=== PATIENT | male | born 1935 | race Caucasian/White ===

== ENCOUNTER 2016-09-25 09:32 | Inpatient (IN) | payer MEDICARE, OTHER ==
[~2016-09-25] VITALS: Ht 165.1 cm; Wt 57.8 kg
[2016-09-25] VITALS (9 sets, daily range): BP systolic 147–183; BP diastolic 75–104; PULSE 74–95; RESP 20–28; O2SAT 94–98
[2016-09-25 10:30] LABS: BASOPHILS % (AUTO) 0.1 % (0-3); EOSINOPHILS % (AUTO) 0 % (0-5); MONOCYTES % (AUTO) 11.1 % (4-12); Mean Corpuscular Hemoglobin 30.7 pg (27.0-35.0); Mean Corpuscular Volume 95.2 fL (81-100); NEUTROPHILS % (AUTO) 81.3 % (40-74); Platelet Count 96 bil/L (150-400)
--- NOTE | 2016-09-25 11:14 | DRSVH ---
PROCEDURE: CT BRAIN WITHOUT CONTRAST ([id number]) INDICATIONS: possible stroke TECHNIQUE: Noncontrast 4.5 mm thick angled axial sections acquired from the foramen magnum to the vertex, with c oronal reformats. COMPARISON: None. FINDINGS: Image quality: Excellent. CSF spaces: Basal cisterns are patent. No extra-axial fluid collections. The ventricles are symmet octaviano in size and shape. Brain: No intracranial bleeds or masses. There is cerebral volume loss for age, with resultant vent ricular and sulcal prominence. There are periventricular and deep white matter chronic small vessel ischemic changes. 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 There is intracranial internal caroti d artery atherosclerosis. Skull and face: Calvarium and visualized facial bones appear intact, without suspicious lesions. Sinuses: Visualized sinuses and mastoids are clear except for very small bilateral maxillary sinus a ir-fluid levels and moderate opacification involving the ethmoid air cells bilaterally. 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 Sinusitis as discussed, likely a combination of both chronic and acute. Dictated by: Justo Thomas M.D. on 09/25/2016 at 11:08 Approved by: Justo Thomas M.D. on 09/25/2016 at 11:13
[2016-09-25 11:29] LABS: APPEARANCE,URINE HAZY (CLEAR,HAZY); COLOR,URINE STRAW (YELLOW); PH,URINE 5.5 (5.0-8.0)
[2016-09-25 11:30] LABS: OCCULT BLOOD,URINE MODERATE (NEGATIVE)
[2016-09-25 11:31] LABS: UROBILINOGEN,URINE NORMAL (NORMAL)
--- NOTE | 2016-09-25 13:04 | ED.REPORT ---
HPI-General Illness Date of Service Sep 25, 2016 ED Provider: Nabil Forman MD 81yoM with PMH remarkable for malignant neoplasm of the lung, parkinson's disease presents with a 1 day history of altered mental status from [facility]. Report from EMS is that the patient is typically verbal, fully oriented, cooperative and ambulatory however this morning [place] staff noted that the patient was non-verbal, uncooperative and combative with staff. Patient remains nonverbal and was unable to provide any background information. The DPOA/son Jr Jones Jr. was contacted and stated that the patient had a diagnosis of lung cancer in 1995 with a pneumonectomy but has not had a recurrence of the cancer since. The patient is DNR/DNI, limited interventions, ok antibiotics and no tube feeds on POLST. The PCP Natacha CUENCA was contacted and her partner was able to provide limited information noted above. On speaking with [facility] living the patient did not receive any of his antibiotics, and has not taken his regular medication since yesterday morning. The patient appears to have been declining since 09/23/2016, was likely confused last night 09/24, and completely altered from his normal this morning 05/2017. Nursing Notes Stated Complaint: WEAKNESS Chief Complaint: General Complaint Nursing Notes Reviewed: Yes Allergies: Coded Allergies: amantadine (Verified Allergy, Unknown, 09/25/16) cephalexin (Verified Allergy, Unknown, 09/25/16) codeine (Verified Allergy, Unknown, 09/25/16) guaifenesin (Verified Allergy, Unknown, 09/25/16) pneumococcal vaccine (Verified Allergy, Unknown, 09/25/16) pregabalin (Verified Allergy, Unknown, 09/25/16) Scheduled Albuterol/Ipratropium (Combivent Respimat Inhal Winters) 120 Spr/4 Gm Inhaler 1 PUFF IH QID Carbidopa/Levodopa ER 50-200 mg (Carbidopa/Levodopa ER 50-200 mg) 1 Each Tablet 1 TABLET PO BID Cholecalciferol (Vitamin D3) (Vitamin D3) 2,000 Unit Tablet 2,000 UNIT PO QAM Citalopram (Citalopram) 10 Mg Tablet 10 MG PO QAM Fluticasone Propionate (Fluticasone Propionate Nasal) 16 Gm Winters.susp 1 SPRAY NS DAILY Fluticasone/Salmeterol (Advair 100-50 Diskus) 60 Puffs/Inh Disk 1 PUFFS IH BID Lactobacillus Acidophilus (Florajen) 460 Mg Capsule 460 MG PO QPM Levothyroxine (Levothyroxine) 25 Mcg Tablet 25 MCG PO QAM Lisinopril (Lisinopril) 20 Mg Tablet 20 MG PO QAM Memantine (Namenda) 10 Mg Tablet 10 MG PO BID Sennosides (Senna) 8.6 Mg Tablet 8.6 MG PO MON,WED, FRI Simvastatin (Simvastatin) 20 Mg Tablet 20 MG PO QPM Scheduled PRN Acetaminophen (Acetaminophen) 325 Mg Capsule 650 MG PO Q4H PRN PRN For Pain Docusate Sodium (Docusate Sodium) 250 Mg Capsule 250 MG PO DAILY PRN PRN For Constipation Guaifenesin (Mucinex) 600 Mg Tablet.er 600 MG PO BID PRN PRN For Cough Mag Hydrox/Al Hydrox/Simeth (Antacid Suspension) 400 Mg-400 Mg-40 Mg/5 Ml Oral.susp 30 ML PO Q4H PRN PRN For Indigestion Magnesium Hydroxide (Milk of Magnesia) 400 Mg/5 Ml Oral.susp 30 ML PO DAILY PRN PRN For Constipation General Time Seen by MD: 10:00 Transferred From: long-term Chief Complaint Altered mental status Hx Obtained From: Son, EMS, Primary care provider Arrived By: Ambulance Sudden in Onset?: Yes Onset Occurred: 1 - 4 hours ago Context of Onset: Medication reaction Symptom Duration: Since onset Recent Healthcare: Recent doctor visit (diagnosed with PNA and started on Levequin) Past Medical History current medication list includes: Citalopram 10mg Fluticasone 50mcg nspry Levothyroxine 25mcg daily Lisinopril 20mg senna Simvastatin 20mg aden Advair 100-50mcg 1 puff BID Carbidopa/LevoCr 50-200mg tab Memantine 10mg Combivent 1 puff QID Levofloxacin 750mg daily for pneumonia started 09/24 or 09/25 Past Medical History Hypothyroidism hyperlipidemia HTN Anxiety Parkinson's CKD Asthma COPD non-small cell lung cancer 1995 Past Surgical History pneumonectomy Smoking History Unknown if Ever Smoker Social History lives at [facility]/Assisted living Ambulatory Status Independent Unable to Obtain History Past medical history, Past surgical history, Family history, Smoking history, Social history, Occupation, Ambulatory status Unable to Obtain Due to: AMS Review of Systems Unable to Obtain ROS Mental status Physical Exam Vital Signs Vital Signs Date Time Temp Pulse Resp B/P Pulse Ox O2 Delivery O2 Flow Rate FiO2 09/25/16 12:21 36.6 81 22 159/85 95 Nasal Cannula 4 09/25/16 10:45 74 150/78 95 Nasal Cannula 4 09/25/16 09:56 36.6 83 21 183/104 94 Nasal Cannula 4 Initial VS: Reviewed Head / Eyes: Atraumatic, Normocephalic, PERRL Neck: Supple, Non-tender, Full range of motion Respiratory: No respiratory distress General/Constitutional: Awake, No acute distress Appearance / Presentation: Positive: Cachectic, Frail, Ill appearing/not toxic , Underweight nonverbal Head / Eyes: Atraumatic, Normocephalic, PERRL Respiratory / Chest: No respiratory distress, No wheezing, No stridor Diminished Breath Sounds: Positive: Absent R Rales / Rhonchi: Positive: Rales L up to 1/3 right rib deformity consistent with pneumonectomy Cardiovascular: Heart rate NL, Peripheral circulation NL, Pulses = bilaterally Heart Rate / Rhythm: Positive: Irreg irregular rhythm no pretibial edema Abdomen: Atraumatic, No guarding, No rebound, BS normoactive, No distention, No palpable mass, No pulsatile mass unable to assess as patient does not follow commands Unable to Evaluate: Positive: Unresponsive Interpretation & Diagnostics Lab Results Interpretation Result Diagram: 09/27/16 0557 09/27/16 0557 Test 09/25/16 10:35 09/25/16 11:17 09/25/16 11:24 Lactic Acid Level 1.0mmol/L (0.4-2.0) Urine Legionella pneumophilia Ag Negative (Negative) Urine Color Straw (YELLOW) Urine Appearance Hazy (CLEAR,HAZY) Urine pH 5.5 (5.0-8.0) Urine Specific [place] 1.030 (1.003-1.035) Urine Protein 300mg/dL (NEG,TRACE) Urine Glucose (UA) Negativemg/dL (NEGATIVE) Urine Ketones 15mg/dL (NEGATIVE) Urine Occult Blood Moderate (NEGATIVE) Urine Nitrite Negative (NEGATIVE) Urine Bilirubin Negative (NEGATIVE) Urine Urobilinogen Normalmg/dL (NORMAL) Urine Leukocyte Esterase Negative (NEGATIVE) Urine RBC 0-2/hpf (0-2) Urine WBC 0-5/hpf (0-5) Urine Epithelial Cells Occasional/hpf (NONE-MOD) Urine Crystals Amorphous urates (NONE Urine Bacteria Moderate/hpf (NONE-FEW) Urine Hyaline Casts Occasional/lpf (NONE) Urine Granular Casts Occasional (NONE SEEN) Urine Waxy Casts None seen (NONE SEEN) Urine Red Blood Cell Casts None seen (NONE SEEN) Urine White Blood Cell Casts None seen (NONE SEEN) Urine Mucus None seen (None Seen) Urine Trichomonas None seen (NONE SEEN) Urine Yeast None (NONE SEEN) Urinalysis Comment None Urine Culture Reflexed Indicated Re-Eval/Medical Decision Med Decision/Clinical Course CBC procal and CXR appear positive for PNA SIRS positive with tachypnea and 13K WBC Patient started on IV ampicillin for typical PNA (allergy to Cephalexin with reaction not able to be verified) and azithromycin IV for atypical infections Source of Hx: Old records, EMS, Family, Private physician Consultation : Referral / Consult Name: Des Rosen MD Consulted With: Hospitalist Requested Call at: 12:30 [employer] Tr[employer] Contractor: Accepts admit Discharge & Departure Primary Impression: Pneumonia Disposition: ADMITTED TO HOSPITAL Discharge Condition All VS Reviewed: Yes Condition: Stable Referrals: Natacha Patel (PCP) Attending Statement I saw and evaluated the patient with the resident as above. I independently evaluated the patient and agree with plan as above. 81-year-old male history of dementia living in assisted living facility presenting for possible pneumonia. Patient with left lower lobe pneumonia. His oxygen requiring 4L. Sirs physiology. Patient will be admitted for pneumonia. He is given Rocephin and azithromycin. In addition patient is not answering any of our questions. Per discussion with his daughter Jamila, patient normally is verbal. Last normal last night. CT head normal. Will defer further workup possible MRI to hospitalist service. copies to: Natacha Patel NICHOLAS K DO Sep 25, 2016 11:30 Nabil Forman MD Sep 25, 2016 15:07 Urine Appearance Hazy (CLEAR,HAZY) Urine pH 5.5 (5.0-8.0) Urine Specific [place] 1.030 (1.003-1.035) Urine Protein 300mg/dL (NEG,TRACE) Urine Glucose (UA) Negativemg/dL (NEGATIVE) Urine Ketones 15mg/dL (NEGATIVE) Urine Occult Blood Moderate (NEGATIVE) Urine Nitrite Negative (NEGATIVE) Urine Bilirubin Negative (NEGATIVE) Urine Urobilinogen Normalmg/dL (NORMAL) Urine Leukocyte Esterase Negative (NEGATIVE) Urine RBC 0-2/hpf (0-2) Urine WBC 0-5/hpf (0-5) Urine Epithelial Cells Occasional/hpf (NONE-MOD) Urine Crystals Amorphous urates (NONE Urine Bacteria Moderate/hpf (NONE-FEW) Urine Hyaline Casts Occasional/lpf (NONE) Urine Granular Casts Occasional (NONE SEEN) Urine Waxy Casts None seen (NONE SEEN) Urine Red Blood Cell Casts None seen (NONE SEEN) Urine White Blood Cell Casts None seen (NONE SEEN) Urine Mucus None seen (None Seen) Urine Trichomonas None seen (NONE SEEN) Urine Yeast None (NONE SEEN) Urinalysis Comment None Urine Culture Reflexed Indicated Re-Eval/Medical Decision Med Decision/Clinical Course CBC procal and CXR appear positive for PNA SIRS positive with tachypnea and 13K WBC Patient started on IV ampicillin for typical PNA (allergy to Cephalexin with reaction not able to be verified) and azithromycin IV for atypical infections Source of Hx: Old records, EMS, Family, Private physician Consultation : Referral / Consult Name: Des Rosen MD Consulted With: Hospitalist Requested Call at: 12:30 [employer] Tr[employer] Contractor: Accepts admit Discharge & Departure Primary Impression: Pneumonia Disposition: ADMITTED TO HOSPITAL Discharge Condition All VS Reviewed: Yes Condition: Stable Referrals: Natacha Patel (PCP) Attending Statement I saw and evaluated the patient with the resident as above. I independently evaluated the patient and agree with plan as above. 81-year-old male history of dementia living in assisted living facility presenting for possible pneumonia. Patient with left lower lobe pneumonia. His oxygen requiring 4L. Sirs physiology. Patient will be admitted for pneumonia. He is given Rocephin and azithromycin. In addition patient is not answering any of our questions. Per discussion with his daughter Jamila, patient normally is verbal. Last normal last night. CT head normal. Will defer further workup possible MRI to hospitalist service. copies to: Natacha Patel NICHOLAS K DO Sep 25, 2016 11:30 Nabil Forman MD Sep 25, 2016 15:07
[2016-09-25] MEDS: 0.9% Sodium Chloride 1,000 ML IV SCH ×2 (13:16→22:05)
[2016-09-25] MEDS: Azithromycin Inj 500 MG in Dextrose 5% w/Vial Mate 250 ML IV SCH (13:21)
[2016-09-25] MEDS ORDERED: CITA10TA9 PO (13:42)
[2016-09-25] MEDS ORDERED: GUAI600T2 PO (13:42)
[2016-09-25] MEDS ORDERED: MAG-95 PO (13:42)
[2016-09-25] MEDS ORDERED: ACET325C PO (13:42)
[2016-09-25] MEDS ORDERED: MAGN400O4 PO (13:42)
[2016-09-25] MEDS ORDERED: LISI-567 PO (13:42)
[2016-09-25] MEDS ORDERED: DOCU250C2 PO (13:42)
[2016-09-25] MEDS ORDERED: SENN-133 PO (13:42)
[2016-09-25] MEDS ORDERED: IPRA4AER IH (13:42)
[2016-09-25] MEDS ORDERED: ADV100INH IH (13:42)
[2016-09-25] MEDS ORDERED: NAM10 PO (13:42)
[2016-09-25] MEDS ORDERED: CHOL200025 PO (13:42)
[2016-09-25] MEDS ORDERED: SIMV20TA4 PO (13:42)
[2016-09-25] MEDS ORDERED: LEVO25TA5 PO (13:42)
[2016-09-25] MEDS ORDERED: LACT460C PO (13:42)
[2016-09-25] MEDS ORDERED: FLUT16SP NS (13:42)
[2016-09-25] MEDS ORDERED: CARB1TAB37 PO (13:42)
--- NOTE | 2016-09-25 14:22 | DRSVH ---
PROCEDURE: X-RAY CHEST ONE VIEW, PORTABLE ([id number]) INDICATIONS: pneumonia TECHNIQUE: One view of the chest was acquired. COMPARISON: [facility], , CHEST 1 VIEW, 11/04/2014, 9:21. FINDINGS: Surgical changes and devices: Right hilar surgical clips redemonstrated. Lungs and pleura: Opacification of the right hemithorax related to prior pneumonectomy. Airspace opa city mildly medial left lung base otherwise left lung is clear. Mediastinum: Mediastinal contours appear normal. Heart size is normal. Bones and chest wall: No suspicious bony lesions. Overlying soft tissues appear unremarkable. IMPRESSION: Left basilar atelectasis versus aspiration or pneumonia. Correlate clinically. Dictated by: Dev Burk RR Interpreted: Justo Thomas MD on 09/25/2016 at 14:21 Transcribed by: JO ANN on 09/25/2016 at 14:22 Approved by: Justo Thomas M.D. on 09/27/2016 at 16:00
[2016-09-25] MEDS ORDERED: Ampicillin Inj 2,000 MG in 0.9% Sodium Chloride 100 ML IV SCH (14:30)
[2016-09-25] MEDS: Albuterol-Ipratropium 3 mL Inhalation Solution NEB SCH ×3 (14:35→19:39)
--- NOTE | 2016-09-25 15:11 | PCM.HPMED ---
Subjective Date of Service Sep 25, 2016 Primary Provider: Admitting Physician: Kaycee Robison MD Primary Care Physician: Natacha Patel Attending Physician: Kaycee Robison MD Chief Complaint: AMS, weakness, decreased po intake, History of Present Illness: Patient is not in condtion to give hx, hx obtained from charts, 81yoM with remote NSCLC s/p Rt pneumonectomy, [facility] [place] [facility], pt started to deteriorate since 09/23, confused last night, got worse this morning, it was reported that yesterday, pt was diagnosed with PNA, reported poor eating, patient complained of not feeling well, received one dose of Levaquin(which denied per ED note), noted v/s 176/97, 85, 86% on RA to 98% on 4liters at the facility. At baseline, pt is function, oriented. This morning pt was found to be combative, non-verbal, brought to ED. In ED VS BP stable 180/104-147/86, 83 to 99, tachypneic to 22, afebrile, 94% 4liter NC,labs showed wbc13, procalcitonin 0.47, lactate1.0, CXR showed complete rt lung opacification likely represent prior pneumonectomy(unchanged from prior), Lt basilar opacities suggestive of PNA. Review of Systems: Pertinent positives as noted in history of present illness. All other systems were reviewed and are negative Allergies Coded Allergies: amantadine (Verified Allergy, Unknown, 09/25/16) cephalexin (Verified Allergy, Unknown, 09/25/16) codeine (Verified Allergy, Unknown, 09/25/16) guaifenesin (Verified Allergy, Unknown, 09/25/16) pneumococcal vaccine (Verified Allergy, Unknown, 09/25/16) pregabalin (Verified Allergy, Unknown, 09/25/16) Home Medications current medication list includes: Citalopram 10mg Fluticasone 50mcg nspry Levothyroxine 25mcg daily Lisinopril 20mg senna Simvastatin 20mg aden Advair 100-50mcg 1 puff BID Carbidopa/LevoCr 50-200mg tab Memantine 10mg Combivent 1 puff QID Levofloxacin 750mg daily for pneumonia started 09/24 or 09/25 PMH Hypothyroidism hyperlipidemia HTN Anxiety Parkinson's CKD Asthma COPD non-small cell lung cancer 1995 Past Surgical History pneumonectomy Social History unable to verify toxic habits due to patient's condition lives at [facility]/Assisted living Ambulatory Status Independent FHx unable to verify due to patient's condition Social History Hx Alcohol Use: Yes Alcoholic Drinks Per Day: unable to verify Smoking Status: Unknown if Ever Smoker Exam Vital Signs Vital Sign - Last Date Time Temp Pulse Resp B/P Pulse Ox O2 Delivery O2 Flow Rate FiO2 09/25/16 14:25 36.6 85 23 147/86 98 Nasal Cannula 4 Exam Patient looked ill, tychpneic, diaphoretic, mumbling, not following commands no JVD, MMM, no LAD regular tachy, nl s1, s2 no mrg coarse BS anteriorly S,ND,NT,normoactive BS+ very warm, vasodilated, no edema, pulses 2/2 Lab and Diagnostics Result Diagram: 09/25/16 0949 09/25/16 0949 X-Rays, CTs and MRIs CTH no acute findings PROCEDURE: X-RAY CHEST ONE VIEW, PORTABLE ([id number]) INDICATIONS: pneumonia TECHNIQUE: One view of the chest was acquired. COMPARISON: [facility], , CHEST 1 VIEW, 11/04/2014, 9:21. FINDINGS: Surgical changes and devices: Right hilar surgical clips redemonstrated. Lungs and pleura: Opacification of the right hemithorax related to prior pneumonectomy. Airspace opacity mildly medial left lung base otherwise left lung is clear. Mediastinum: Mediastinal contours appear normal. Heart size is normal. Bones and chest wall: No suspicious bony lesions. Overlying soft tissues appear unremarkable. IMPRESSION: Left basilar atelectasis versus aspiration or pneumonia. Correlate clinically. Dictated by: Dev EM Interpreted: Justo Thomas MD on 09/25/2016 at 14: 21 Transcribed by: JO ANN on 09/25/2016 at 14:22 Assessment & Plan 81yoM with remote NSCLC s/p Rt pneumonectomy, [facility], decreased po, weakness, not feeling well. acute, active #sepsis, SIRS+ 3/4HR/RR/wbc, possible source: pnuemonia, likely HCAP given living [facility], HD stable, afebrile, likely early sepsis based on exam, potential to decompensate quickly., will treat as HCAP. UA clean -will broaden abx to zosyn, high risks of resistant strep, pseudmonas given structural lung dz, age -FU infectious w/u MRSA swab, sterp Ag, legionella, viral PCR, BCX, sputum cx -O2 supplement target>90% given one ventilating lung -MAP target>65, trends procalcitonin, fever, wbc #acute encephalopathy, POA, CTH neg, unlikely CVA, likely toxic metabolic due to sepsis, reassess MS daily, verify with caregiver. chronic, stable PD, will resume dopamine once clinically improves hx of lung CA s/p pneumonectomy, likely in remission per PCP dispo:Patient will be admitted with inpatient status with expectation of inpatient therapy for more than 2 midnights diet:NPO for now dvt ppx:LMWH DNR/DNI Time spent 65min Kaycee Robison MD Sep 25, 2016 14:35
[2016-09-25] MEDS ORDERED: Vancomycin Dose per Pharmacist XX SCH (15:15)
[2016-09-25] MEDS ORDERED: Piperacillin-Tazo 3.375 Gm Inj 3.375 GM in Dextrose 5% Minibag Plus 50 ML IV SCH (15:15)
[2016-09-25] MEDS ORDERED: 0.9% Sodium Chloride 1,000 ML IV SCH (15:15)
--- NOTE | 2016-09-25 16:12 | NUR ---
Admit Patient admitted to room 1015. Patient arrives via gurney transferred to bed by slider. Pt is very cachetic many bony prominences. Patient alert but declines to communicate much occasionally answers questions. Pt on 4-5 liters nasal canula , very coarse breath sounds and harsh course cough noted. Admission completed by admit nurse earlier. Resp therapy here to assess.
--- NOTE | 2016-09-25 16:12 | PCM.PHAPRO ---
Progress AMS, weakness, decreased po intake, Patient is an 81 y.o. male receiving vancomycin for PNEUMONIA. Concurrent abx include: ZOSYN. WBC count is 13 and the patient is afebrile. Patient is 56 kg, 65inches tall with a SCr of 1.0 mg/dL-- estimated CrCl of 45mL /min. Based on patient parameters vancomycin will be dosed at 1000mg q24h with a target trough of 15-20 /mL. Trough will be drawn prior to the 4th dose on 09/28 @ 1700. Pharmacy will follow daily and adjust as appropriate. Thank you for the consult in the care of this patient. RTM PharmD Bogdan Patten Sep 25, 2016 16:12
[2016-09-25] MEDS ORDERED: Vancomycin Inj 1,000 MG in IV Premix 1 EACH IV SCH (18:00)
[2016-09-25] MEDS: Piperacillin-Tazo 3.375 Gm Inj 3.375 GM in Dextrose 5% Minibag Plus 50 ML IV SCH (21:57)
[2016-09-26] VITALS (14 sets, daily range): BP systolic 112–149; BP diastolic 55–73; PULSE 77–113; RESP 19–24; O2SAT 92–99
[2016-09-26] MEDS: Albuterol-Ipratropium 3 mL Inhalation Solution NEB SCH ×6 (00:17→19:56)
--- NOTE | 2016-09-26 04:08 | NUR ---
Activity Noted cough during sleep, RT administrated NEB tx, VSS at this time. Level of confusion is difficult to determine as the patient is hard of hearing, and does not answer questions appropriately. Bed in low position, call light within reach, [place] alarm on, and intentional rounding. Not exhibiting s/s of CP,nor Abdominal discomfort. Will continue plan of care.
[2016-09-26] MEDS: Piperacillin-Tazo 3.375 Gm Inj 3.375 GM in Dextrose 5% Minibag Plus 50 ML IV SCH ×2 (04:23→11:58)
[2016-09-26 07:00] LABS: BASOPHILS % (AUTO) 0.1 % (0-3); EOSINOPHILS % (AUTO) 0 % (0-5); MONOCYTES % (AUTO) 9.1 % (4-12); Mean Corpuscular Hemoglobin 30.3 pg (27.0-35.0); Mean Corpuscular Volume 96.3 fL (81-100); NEUTROPHILS % (AUTO) 87.1 % (40-74); Platelet Count 96 bil/L (150-400)
[2016-09-26 07:25] LABS: Magnesium 1.9 mg/dL (1.6-2.6); Phosphorus 3.1 mg/dL (2.5-4.9)
[2016-09-26] MEDS: Lactated Ringer's 1,000 ML IV SCH ×2 (11:53→22:33)
--- NOTE | 2016-09-26 12:00 | PCM.PNMED ---
Subjective Date of Service Sep 26, 2016 Subjective Patient looks more alert than yesterday, oriented to himself Still looked ill, labored breathing, tachypnea passed swallow test, Tamiflu started for influenza A Recurrent fever multiple times, HD stable, pt asked for water for thirsty Exam Vital Signs Vital Sign - Last Date Time Temp Pulse Resp B/P Pulse Ox O2 Delivery O2 Flow Rate FiO2 09/26/16 11:00 36.7 89 21 113/64 92 Nasal Cannula 3.50 Intake and Output 09/25/16 09/25/16 09/26/16 Cumulative From/Thru 15:00 23:00 07:00 09/25/16 11:51 - 09/26/16 05:24 Intake Total 0 ml 645 ml 645 ml Output Total 538 ml 538 ml Balance -538 ml 645 ml 107 ml Intake Oral 0 ml 0 ml IV Total 645 ml 645 ml Output Urine Total 538 ml 538 ml # Voids 2 2 Exam cachectic elderly, looked ill, tachypneic. using accessory muscle no JVD, MMM, no LAD regular tachy, nl s1, s2 no mrg coarse BS anteriorly S,ND,NT,normoactive BS+ warm, no edema, pulses 2/2 IVs and Medications Medications Reviewed: Medications were reviewed in detail Lab and Diagnostics Result Diagram: 09/26/1661409/26/16614 X-Rays, CTs and MRIs CTH no acute findings PROCEDURE: X-RAY CHEST ONE VIEW, PORTABLE ([id number]) INDICATIONS: pneumonia TECHNIQUE: One view of the chest was acquired. COMPARISON: [facility], , CHEST 1 VIEW, 11/04/2014, 9:21. FINDINGS: Surgical changes and devices: Right hilar surgical clips redemonstrated. Lungs and pleura: Opacification of the right hemithorax related to prior pneumonectomy. Airspace opacity mildly medial left lung base otherwise left lung is clear. Mediastinum: Mediastinal contours appear normal. Heart size is normal. Bones and chest wall: No suspicious bony lesions. Overlying soft tissues appear unremarkable. IMPRESSION: Left basilar atelectasis versus aspiration or pneumonia. Correlate clinically. Dictated by: Dev EM Interpreted: Justo Thomas MD on 09/25/2016 at 14: 21 Transcribed by: JO ANN on 09/25/2016 at 14:22 Assessment & Plan 81yoM with remote NSCLC s/p Rt pneumonectomy, [facility], decreased po, weakness, not feeling well. acute, active #sepsis, SIRS+ 3/4HR/RR/wbc, due to Influenza A pneumonia PCR+, possible superimposed bacterial process, likely HCAP given living [facility], -pt is still septic with recurrent fever, worsening, elevated white count, persistent encephalopathy, although HD stable, -continue Tamiflu x5d -continue zosyn,azithro for now high risks of resistant strep, pseudmonas given structural lung dz, age, vancomycin stopped -FU infectious w/u MRSA swab, sterp Ag, legionella, BCX, sputum cx -O2 supplement target>90% given one ventilating lung -MAP target>65, trends procalcitonin, fever, wbc -continue KB765ed/hr give non-AG acidosis, hypernatremia #acute encephalopathy, POA, CTH neg, unlikely CVA, likely toxic metabolic due to sepsis, improving, reassess MS daily, verify with caregiver. chronic, stable PD, will resume dopamine once clinically improves hx of lung CA s/p pneumonectomy, likely in remission per PCP thrombocytopenia, unclear onset, stable, will trends for now dispo:likely at least 2-3more days, diet:advance diet as tolerate dvt ppx:LMWH stopped due to thrombocytopenia DNR/DNI Time spent 35min Kaycee Robison MD Sep 26, 2016 12:00
--- NOTE | 2016-09-26 12:32 | NUR ---
[employer] f/u with pt in afternoon. Nursing reports pt becoming "gurgly" and was noted coughing following PO intake. [employer] provided pt with swallows tsp of NTL H2O and applesauce. Swallowing initiation is timely with good laryngeal elevation. Pt needs to be positioned upright in bed, he should be alert, and not fatigued. Pt requires 1:1 feeds of NTL/puree via tsp (no straws). Discontinue feeding if pt noted coughing, if pt becomes lethargic or demonstrates reduced level of alertness. Monitor respiration and SpO2, and discontinue feeding if respiratory rate increases or SpO2 drops below 90%. [employer] to f/u and monitor progress.
--- NOTE | 2016-09-26 15:03 | NUR ---
Social Work: Initial Assessment Data: See Initial Assessment. Jeevan Jones is a 81 year old male who was admitted on 09/25/16 for pneumonia per H&P. Pt's insurance is [employer] and PCP is BANG Renae. EMR reviewed. THEO met with son Jr [phone], daughter in law, and daughter Jamila [phone], to discuss discharge planning, THEO role explained. Pt was asleep in bed. Pt resides at [facility] where he receives assistance with ADLs. Pt does not use any DME and drives. Pt has no HH or SNF history. Pt has VA benefits, but no manager intermediate care benefits. THEO discussed DPOA/AD, son stated that it has been completed but it is not on file, SW requested it to be brought in to the hospital. THEO will contact [facility] closer to discharge to determine if re-evaluation will be needed. Pt may need PT evaluation. Pt to either receive transportation from facility or private pay. [employer] provided family with plan and phone number on [employer]. THEO will continue to follow. Assessment: Pt who resides in assisted living at baseline. Plan: Pt to discharge back to [facility] vs SNF. Pt may benefit from PT eval. SW to contact [facility] to determine if reassessment is needed. THEO will continue to follow. FARHAD Mascorro Addendum: 09/26/16 at 1517 by SULLY LUU SS Amended: Links added.
--- NOTE | 2016-09-26 19:42 | NUR ---
Psychosocial Answered pt's call light, pt states he has a question, and would like to "know how my time I have left? I want to prepare my body to be ready when you tell me it is time to go, I just want to go." Advised pt that I was his nurse and that would be a better questions asked of the doctor. Asked him about family members that may be near to come stay with him. I called and left a message for his daughter Jamila. About an hour and half after this conversation his family showed up, notified them of the conversation. Pt awake and chatting w/ family stating that "having them near by sure makes healing better" Call light w/in reach, bed down and in locked position, von alarm on.
--- NOTE | 2016-09-26 22:35 | NUR ---
Respiratory Patient experiencing difficulty breathing, RT called for suctioning. RT suctioned scant amounts of mucous, gurgling still audible. Patient now sitting up, requested some nectar thick liquids. Now states that he would like to lay back down.
[2016-09-27] VITALS (14 sets, daily range): BP systolic 121–158; BP diastolic 61–78; PULSE 75–98; RESP 16–24; O2SAT 92–99
[2016-09-27] MEDS: Albuterol-Ipratropium 3 mL Inhalation Solution NEB SCH ×6 (00:51→19:25)
[2016-09-27] MEDS: Piperacillin-Tazo 3.375 Gm Inj 3.375 GM in Dextrose 5% Minibag Plus 50 ML IV SCH ×4 (02:03→20:24)
[2016-09-27] MEDS: Lactated Ringer's 1,000 ML IV SCH ×2 (05:05→07:15)
[2016-09-27 06:32] LABS: BASOPHILS % (AUTO) 0.2 % (0-3); EOSINOPHILS % (AUTO) 0.1 % (0-5); Mean Corpuscular Hemoglobin 31.1 pg (27.0-35.0); Mean Corpuscular Volume 98.1 fL (81-100); NEUTROPHILS % (AUTO) 81.8 % (40-74); Platelet Count 94 bil/L (150-400)
[2016-09-27 06:45] LABS: Phosphorus 2.4 mg/dL (2.5-4.9)
[2016-09-27] MEDS: Azithromycin Inj 500 MG in Dextrose 5% w/Vial Mate 250 ML IV SCH (08:51)
--- NOTE | 2016-09-27 11:49 | PCM.PNMED ---
Subjective Date of Service Sep 27, 2016 Subjective Patient is more alert, conversive today AM Does not remember why he is in the hospital He knows where he lives, time, still tachypneic but denied SOB, not coughing reported that pt spit out chunk of sputum on suction tolerating dysphagia diet, meds Exam Vital Signs Vital Sign - Last Date Time Temp Pulse Resp B/P Pulse Ox O2 Delivery O2 Flow Rate FiO2 09/27/16 10:26 36.2 89 16 121/61 97 Nasal Cannula 3.50 Intake and Output 09/26/16 09/26/16 09/27/16 Cumulative From/Thru 15:00 23:00 07:00 09/25/16 11:51 - 09/27/16 06:47 Intake Total 0 ml 1687 ml 1155 ml 3487 ml Output Total 415 ml 350 ml 120 ml 1423 ml Balance -415 ml 1337 ml 1035 ml 2064 ml Intake Oral 0 ml 300 ml 100 ml 400 ml IV Total 1387 ml 1055 ml 3087 ml Output Urine Total 415 ml 350 ml 120 ml 1423 ml # Voids 1 3 Exam cachectic elderly, looked ill, tachypneic. using accessory muscle no JVD, MMM, no LAD regular tachy, nl s1, s2 no mrg coarse BS anteriorly S,ND,NT,normoactive BS+ warm, no edema, pulses 2/2 IVs and Medications Medications Reviewed: Medications were reviewed in detail Lab and Diagnostics Result Diagram: 09/27/1655609/27/1657 X-Rays, CTs and MRIs CTH no acute findings PROCEDURE: X-RAY CHEST ONE VIEW, PORTABLE ([id number]) INDICATIONS: pneumonia TECHNIQUE: One view of the chest was acquired. COMPARISON: [facility], , CHEST 1 VIEW, 11/04/2014, 9:21. FINDINGS: Surgical changes and devices: Right hilar surgical clips redemonstrated. Lungs and pleura: Opacification of the right hemithorax related to prior pneumonectomy. Airspace opacity mildly medial left lung base otherwise left lung is clear. Mediastinum: Mediastinal contours appear normal. Heart size is normal. Bones and chest wall: No suspicious bony lesions. Overlying soft tissues appear unremarkable. IMPRESSION: Left basilar atelectasis versus aspiration or pneumonia. Correlate clinically. Dictated by: Dev Burk RRJackie Interpreted: Justo Thomas MD on 09/25/2016 at 14: 21 Transcribed by: JO ANN on 09/25/2016 at 14:22 Assessment & Plan 81yoM with remote NSCLC s/p Rt pneum[facility], [facility], decreased po, weakness, not feeling well. acute, active #sepsis, SIRS+ 3/4HR/RR/wbc, due to Influenza A pneumonia PCR+, possible superimposed bacterial process, likely HCAP given living [facility], -pt is clinically improving, white count is coming down, afebrile, HD stable, -continue Tamiflu x5d -continue zosyn,azithro for now high risks of resistant strep, pseudmonas given structural lung dz, age, vancomycin stopped -FU infectious w/u MRSA swab, sterp Ag, legionella, BCX, sputum cx -O2 supplement target>90% given one ventilating lung -MAP target>65, trends procalcitonin, fever, wbc -continue [id number]/hr give non-AG acidosis, hypernatremia #acute encephalopathy, POA, CTH neg, unlikely CVA, likely toxic metabolic due to sepsis, improving, reassess MS daily, verify with caregiver. chronic, stable PD, will resume dopamine once clinically improves hx of lung CA s/p pneumonectomy, likely in remission per PCP thrombocytopenia, unclear onset, stable, will trends for now dispo:likely at least 2-3more days, ordered for PT tomorrow diet:advance diet as tolerate dvt ppx:LMWH stopped due to thrombocytopenia DNR/DNI Time spent 35min Kaycee Robison MD Sep 27, 2016 11:49
--- NOTE | 2016-09-27 12:17 | NUR ---
attempted to suction back of throat for sputum sample. unable to obtain at this time
--- NOTE | 2016-09-27 16:40 | NUR ---
Mentation Pt oriented to self and time, improved from previous shift. Using call light appropriately and today is requesting urinal more for voiding. Anxious to go home. Bed down and locked, call light w/in reach, von alarm on.
[2016-09-28] VITALS (12 sets, daily range): BP systolic 163–183; BP diastolic 80–95; PULSE 68–90; RESP 18–20; O2SAT 95–100
[2016-09-28] MEDS: Albuterol-Ipratropium 3 mL Inhalation Solution NEB SCH ×7 (00:03→23:52)
[2016-09-28] MEDS: Lactated Ringer's 1,000 ML IV SCH (04:05)
[2016-09-28] MEDS: Piperacillin-Tazo 3.375 Gm Inj 3.375 GM in Dextrose 5% Minibag Plus 50 ML IV SCH ×3 (04:06→20:13)
--- NOTE | 2016-09-28 05:00 | NUR ---
Respiratory pt on 2.5L O2 via NC with sat. 92-94%. no gargling while he sleep. received Neb treatment per schedule by RT. Pt spent most of the nights resting quietly with his eyes closed. reoriented pt multiple times. no c/o pain. bed down and in locked position, Call light within reach,[place] alarm on. will continue to monitor.
[2016-09-28 06:42] LABS: Mean Corpuscular Hemoglobin 30.4 pg (27.0-35.0); Mean Corpuscular Volume 97.3 fL (81-100); Platelet Count 129 bil/L (150-400)
[2016-09-28 06:49] LABS: Magnesium 1.7 mg/dL (1.6-2.6); Phosphorus 2.1 mg/dL (2.5-4.9)
[2016-09-28] MEDS ORDERED: Potassium Chloride 20 mEq SR Tablet PO ONE (07:15)
[2016-09-28 07:26] LABS: BASOPHILS % (AUTO) 0 % (0-3); EOSINOPHILS % (AUTO) 0 % (0-5); MONOCYTES % (AUTO) 7 % (4-12); NEUTROPHILS % (AUTO) 81 % (40-74)
[2016-09-28] MEDS ORDERED: 0.9% Sodium Chloride 250 ML ONE (07:46)
[2016-09-28] MEDS: Azithromycin Inj 500 MG in Dextrose 5% w/Vial Mate 250 ML IV SCH (09:58)
--- NOTE | 2016-09-28 10:32 | NUR ---
Evaluation completed. Please go to "Notes" then click on "Assessments and Notes" (bottom left corner of screen). Then select appropriate discipline tab on top of screen.
--- NOTE | 2016-09-28 14:01 | PCM.PNMED ---
Subjective Date of Service Sep 28, 2016 Subjective no new complaints or events Exam Vital Signs Vital Sign - Last Date Time Temp Pulse Resp B/P Pulse Ox O2 Delivery O2 Flow Rate FiO2 09/28/16 13:01 80 20 96 09/28/16 10:54 36.7 163/80 Nasal Cannula 3.50 Intake and Output 09/27/16 09/27/16 09/28/16 Cumulative From/Thru 15:00 23:00 07:00 09/25/16 11:51 - 09/28/16 00:32 Intake Total 3487 ml Output Total 1423 ml Balance 2064 ml Intake Oral 400 ml IV Total 3087 ml Output Urine Total 1423 ml # Voids 3 Exam achectic elderly, looked ill, tachypneic. using accessory muscle no JVD, MMM, no LAD regular tachy, nl s1, s2 no mrg coarse BS anteriorly on left S,ND,NT,normoactive BS+ warm, no edema, pulses 2/2 IVs and Medications Medications Reviewed: Medications were reviewed in detail Lab and Diagnostics Result Diagram: 09/28/16 0557 09/28/16 0557 X-Rays, CTs and MRIs CTH no acute findings PROCEDURE: X-RAY CHEST ONE VIEW, PORTABLE ([id number]) INDICATIONS: pneumonia TECHNIQUE: One view of the chest was acquired. COMPARISON: [facility], CHEST 1 VIEW, 11/04/2014, 9:21. FINDINGS: Surgical changes and devices: Right hilar surgical clips redemonstrated. Lungs and pleura: Opacification of the right hemithorax related to prior pneumonectomy. Airspace opacity mildly medial left lung base otherwise left lung is clear. Mediastinum: Mediastinal contours appear normal. Heart size is normal. Bones and chest wall: No suspicious bony lesions. Overlying soft tissues appear unremarkable. IMPRESSION: Left basilar atelectasis versus aspiration or pneumonia. Correlate clinically. Dictated by: Dev EM Interpreted: Justo Thomas MD on 09/25/2016 at 14: 21 Transcribed by: JO ANN on 09/25/2016 at 14:22 Assessment & Plan 81yoM with remote NSCLC s/p Rt pneum[facility]ctomy[facility], decreased po, weakness, not feeling well. acute, active #sepsis, SIRS+ 3/4HR/RR/wbc, due to Influenza A pneumonia PCR+, possible superimposed bacterial process, likely HCAP given living [facility], -pt is clinically improving, white count is coming down, afebrile, HD stable, -continue Tamiflu x5d -continue zosyn,azithro for now high risks of resistant strep, pseudmonas given structural lung dz, age, vancomycin stopped -nfectious w/u MRSA swab, sterp Ag, legionella, BCX, sputum cx all negative -O2 supplement target>90% given one ventilating lung -MAP target>65, trends procalcitonin, fever, wbc -discontinue PI214jb/hr # Rouleaux on peripheral smear -unclear etiology -calcium and serum protein normal,will not do SPEP -may consider workup outpatient if persists after treatment of infection #acute encephalopathy, POA, CTH neg, unlikely CVA, likely toxic metabolic due to sepsis, improving, reassess MS daily, verify with caregiver. chronic, stable PD, will resume dopamine once clinically improves hx of lung CA s/p pneumonectomy, likely in remission per PCP thrombocytopenia, unclear onset, stable, will trends for now dispo:likely in 1-2 more days, PT recommends SNF diet:advance diet as tolerate dvt ppx:LMWH stopped due to thrombocytopenia DNR/DNI Resuscitation Status: DNR/DNI:Do Not Resuscitate/Intubate Dat Starks MD Sep 28, 2016 14:01
--- NOTE | 2016-09-28 16:11 | NUR ---
Social Work-continued d/c planning: Data:EMR reviewed. Pt is on day 3 of hospitalization for pneumonia per H&P. Pt is not medically stable at this time, anticipates several more days. PT worked with pt and they are recommending SNF. SW followed up with pt's daughter Jamila at bedside, SW role explained. Jamila provided SW with phone number for friend Rupa for transportation needs [phone] or [phone]. SW explained recommend of SNF. Jamila states SW will need to speak with brother Jr. SW called Jr and discuss. Jr states that this decision would need to be discussed with his father as well. SW followed up with pt at bedside. Pt unwilling to give answer if he would be willing to go SNF. SW to follow up again tomorrow. SW will continue to follow. Assessment:Pt who would benefit from SNF. Plan:SW to follow up again with pt tomorrow regarding SNF.SW will continue to follow. FARHAD Matamoros
--- NOTE | 2016-09-28 16:23 | NUR ---
NUTRITION ASSESSMENT: ASSESS: 81 YO male admitted for pneumonia. Pt diet was advanced to dysphagia mechanical, honey thick liquids today by ST. Po intake has been 25%. PMHx: Hypothyroidism, hyperlipidemia, HTN, anxiety, CKD, Asthma, COPD, parkinson's, non-small cell lung cancer s/p pneumonectomy. LABS: Reviewed. K+ 3.3, BUN 30, Ca 8.4, Phos 2.1, Alb 3.0. MEDS: Reviewed. GI: BM x 1 today (09/28) CURRENT WT: 58 kg. Admit wt: 54.6 kg. DIET: dysphagia mechanical, honey thick liquids. PO intake 25%. EST. NEEDS: [id number] kcals (30-35 kcals/kg BW), 55-85 g protein (1.0-1.5 g/kg BW) NUTRITION DIAGNOSIS: 1.) Inadequate oral intake related to decreased ability to consume sufficient energy as evidenced by current po intake of 25% of meals. 2.) Chewing / Swallowing difficulties related to delayed swallow as evidenced by current need for mechanically altered diet texture, ST following. NUTRITION INTERVENTION: 1.) Will add honey thick ensures on all trays. 2.) Continue to advance diet as able per ST recommendations. MONITOR / EVAL: PO intake, labs, nutritional status. Follow per high nutritional risk guidelines.
[2016-09-28] MEDS ORDERED: Vancomycin Serum Trough XX ONE (17:00)
--- NOTE | 2016-09-28 19:18 | NUR ---
Mentation Patient using call light appropriately. A&Ox3. Patient up with SBA/FWW. Call light and tray table within reach, von alarm on. Will continue to monitor patient hourly.
[2016-09-29] VITALS (9 sets, daily range): BP systolic 127–174; BP diastolic 70–78; PULSE 74–84; RESP 16–20; O2SAT 95–100
--- NOTE | 2016-09-29 02:01 | NUR ---
Mentation/Swallowing Patient alert and oriented x1. Denies pain. Patient confused when asked about health. Does not understand why is at the hospital. Patient coughed x2 while taking sips of honey thick water. VSS. Call light within reach. Reiterated to patient how to use call light. Care continues.
[2016-09-29] MEDS: Albuterol-Ipratropium 3 mL Inhalation Solution NEB SCH ×5 (03:41→19:54)
[2016-09-29] MEDS: Piperacillin-Tazo 3.375 Gm Inj 3.375 GM in Dextrose 5% Minibag Plus 50 ML IV SCH ×3 (04:14→21:51)
--- NOTE | 2016-09-29 04:38 | NUR ---
Respiratory Patient sounds wet with wheezing. On auscultation, lung sounds have crackles and wheezes. HOB at 30%. Sips of honey thick water given to patient upon request.
--- NOTE | 2016-09-29 04:55 | NUR ---
Swallow precautions Honey thick water noted on patients gown and bedsheets. Suspected patient has been taking drinks without supervision. Will monitor for signs of aspiration . Fluids removed from bedside.
[2016-09-29 06:20] LABS: Mean Corpuscular Hemoglobin 30.2 pg (27.0-35.0); Mean Corpuscular Volume 96.9 fL (81-100); Platelet Count 130 bil/L (150-400)
[2016-09-29 06:23] LABS: Magnesium 1.7 mg/dL (1.6-2.6); Phosphorus 2.5 mg/dL (2.5-4.9)
[2016-09-29] MEDS ORDERED: Potassium Chloride 20 mEq SR Tablet PO ONE (07:25)
[2016-09-29 08:27] LABS: BASOPHILS % (AUTO) 0 % (0-3); EOSINOPHILS % (AUTO) 0 % (0-5); MONOCYTES % (AUTO) 9 % (4-12); NEUTROPHILS % (AUTO) 77 % (40-74)
[2016-09-29] MEDS: Azithromycin Inj 500 MG in Dextrose 5% w/Vial Mate 250 ML IV SCH (08:37)
--- NOTE | 2016-09-29 11:34 | NUR ---
Social Work-continued d/c planning: Data:EMR Reviewed. Pt is on day 4 of hospitalization for pneumonia per H&P. Pt is not medically stable, but anticipate 1-2 days. PT recommending SNF placement for pt. THEO updated in morning rounds from RN that [facility] will come and complete assessment. THEO called and spoke with Rosanne at [facility] today who states they are not scheduled to come and see pt and feel pt would benefit from SNF. SW followed up with pt, pt only oriented to self, pt not able to track conversation. THEO placed a call to son Jr [phone] to discuss. Jr is in agreement for SNF and would like referral sent to [facility]. SW explained that referral would be send and then insurance authorization would need to be obtained. SW called [facility] admissions and left message, awaiting a return call. Paperwork placed in the chart. SW will continue to follow. Assessment:Pt to benefit from SNF. Plan:[facility] have been faxed. Insurance authorization will need to be obtained. Paperwork placed in the chart. SW will continue to follow. FARHAD Matamoros
--- NOTE | 2016-09-29 13:52 | NUR ---
Aspiration P: Pt at risk for aspiration I: Offered honey thick liquids with assistance, kept bed up at least 30 degrees, bolt upright with eating E: Pt tolerates dysphagia diet and no signs of aspiration, no throat clearing/coughing with PO intake
--- NOTE | 2016-09-29 15:53 | PCM.PNMED ---
Subjective Date of Service Sep 29, 2016 Subjective Breathing improving. New complaints or events. Exam Vital Signs Vital Sign - Last Date Time Temp Pulse Resp B/P Pulse Ox O2 Delivery O2 Flow Rate FiO2 09/29/16 13:07 76 18 95 Nasal Cannula 2.00 09/29/16 12:58 36.6 127/72 Intake and Output 09/28/16 09/28/16 09/29/16 Cumulative From/Thru 15:00 23:00 07:00 09/25/16 11:51 - 09/29/16 06:14 Intake Total 1625 ml 294 ml 503 ml 5909 ml Output Total 600 ml 750 ml 2773 ml Balance 1625 ml -306 ml -247 ml 3136 ml Intake Oral 300 ml 220 ml 375 ml 1295 ml IV Total 1325 ml 74 ml 128 ml 4614 ml Output Urine Total 600 ml 750 ml 2773 ml # Voids 3 4 10 # Bowel Movements 1 0 1 Exam achectic elderly, looked ill, tachypneic. using accessory muscle no JVD, MMM, no LAD regular tachy, nl s1, s2 no mrg coarse BS anteriorly on left S,ND,NT,normoactive BS+ warm, no edema, pulses 2/2 IVs and Medications Medications Reviewed: Medications were reviewed in detail Lab and Diagnostics Result Diagram: 09/29/16 0509/29/16 0520 X-Rays, CTs and MRIs CTH no acute findings PROCEDURE: X-RAY CHEST ONE VIEW, PORTABLE ([id number]) INDICATIONS: pneumonia TECHNIQUE: One view of the chest was acquired. COMPARISON: [facility], , CHEST 1 VIEW, 11/04/2014, 9:21. FINDINGS: Surgical changes and devices: Right hilar surgical clips redemonstrated. Lungs and pleura: Opacification of the right hemithorax related to prior pneumonectomy. Airspace opacity mildly medial left lung base otherwise left lung is clear. Mediastinum: Mediastinal contours appear normal. Heart size is normal. Bones and chest wall: No suspicious bony lesions. Overlying soft tissues appear unremarkable. IMPRESSION: Left basilar atelectasis versus aspiration or pneumonia. Correlate clinically. Dictated by: Dev EM Interpreted: Justo Thomas MD on 09/25/2016 at 14: 21 Transcribed by: JO ANN on 09/25/2016 at 14:22 Assessment & Plan 81yoM with remote NSCLC s/p Rt pneum[facility]ctomy[facility], decreased po, weakness, not feeling well. acute, active #sepsis, SIRS+ 3/4HR/RR/wbc, due to Influenza A pneumonia PCR+, possible superimposed bacterial process, likely HCAP given living [facility], -pt is clinically improving, white count is coming down, afebrile, HD stable, -continue Tamiflu x5d -continue zosyn,azithro for now high risks of resistant strep, pseudmonas given structural lung dz, age, vancomycin stopped -nfectious w/u MRSA swab, sterp Ag, legionella, BCX, sputum cx all negative -O2 supplement target>90% given one ventilating lung -MAP target>65, trends procalcitonin, fever, wbc -discontinue [id number]/hr # Rouleaux on peripheral smear -unclear etiology -calcium and serum protein normal,will not do SPEP -may consider workup outpatient if persists after treatment of infection #acute encephalopathy, POA, CTH neg, unlikely CVA, likely toxic metabolic due to sepsis, improving, reassess MS daily, verify with caregiver. chronic, stable PD, will resume dopamine once clinically improves hx of lung CA s/p pneumonectomy, likely in remission per PCP thrombocytopenia, unclear onset, stable, will trends for now dispo: PT recommends SNF . Medically ready for discharge on by mouth antibiotics. Awaiting authorization from insurance diet:advance diet as tolerate dvt ppx:LMWH stopped due to thrombocytopenia DNR/DNI VTE Mechanical Devices: Intermittant Pneumatic CD Resuscitation Status: DNR/DNI:Do Not Resuscitate/Intubate Dat Starks MD Sep 29, 2016 15:53
--- NOTE | 2016-09-29 18:17 | NUR ---
Mentation- Patient confused to time and place. Impulsive at times. [place] alarm on for safety. Cooperative and easily directed. Up to bathroom to void and up in chair for meals. Denies discomfort.
[2016-09-30 00:39] VITALS: PULSE 88; RESP 16; O2SAT 97
[2016-09-30] MEDS: Albuterol-Ipratropium 3 mL Inhalation Solution NEB SCH ×4 (00:39→13:19)
[2016-09-30] MEDS ORDERED: 0.9% Sodium Chloride 250 ML ONE (04:40)
[2016-09-30] MEDS: Piperacillin-Tazo 3.375 Gm Inj 3.375 GM in Dextrose 5% Minibag Plus 50 ML IV SCH ×2 (04:41→12:38)
[2016-09-30 05:01] VITALS: PULSE 9; RESP 16; O2SAT 96
[2016-09-30 05:18] VITALS: BP 176/83; PULSE 78; RESP 18; O2SAT 100
[2016-09-30 08:12] VITALS: BP 178/87; PULSE 74; RESP 24; O2SAT 97
--- NOTE | 2016-09-30 08:56 | NUR ---
Social Work called and spoke with Myriam in Admissions at [facility]. Myriam states she will check in with facility regarding insurance authorization and will call THEO back. THEO will continue to follow. FARHAD Matamoros
[2016-09-30 09:05] VITALS: PULSE 76; RESP 20; O2SAT 99
[2016-09-30] MEDS: Azithromycin Inj 500 MG in Dextrose 5% w/Vial Mate 250 ML IV SCH (09:10)
--- NOTE | 2016-09-30 11:24 | NUR ---
[facility] can accept with Dr. Kahn to follow [phone]. Myriam confirms that their business office has run pt's insurance and he has MCR with [facility] supp and they state they do not need authorization. THEO will continue to follow FARHAD Matamoros
--- NOTE | 2016-09-30 11:26 | NUR ---
Social Work-readiness for discharge: Data:EMR reviewed. PT is on day 5 of hospitalization for Pneumonia per H&P. Pt may be medically stable to discharge later today or tomorrow. PT continues to recommend SNF, ambulating CGA 35 ft.THEO confirmed with Myriam at [facility] that they are ready to accept pt today. Myriam states that the business office checked benefits and no authorization is needed. THEO spoke with Dannielle Jones [phone] and provided update. updated. Paperwork in the chart. THEO will continue to follow. Assessment:Pt who woudl benefit from SNF. Plan:[facility] has accepted with Dr. Kahn to follow. Paperwork in the chart. THEO will continue to follow. FARHAD Matamoros
--- NOTE | 2016-09-30 11:38 | PCM.DIMED ---
Discharge Instructions Date of Service Sep 30, 2016 Dates of Hospitalization Sep 25, 2016 at 13:51 Discharge Diagnosis Discharge Diagnosis #sepsis, due to Influenza A pneumonia PCR+, possible superimposed bacterial process, likely HCAP , # Rouleaux on peripheral smear -unclear etiology -calcium and serum protein normal,will not do SPEP -may consider workup outpatient if persists after treatment of infection #acute encephalopathy, POA, CTH neg, unlikely CVA, likely toxic metabolic due to sepsis, improving, chronic, stable #Parkinson Disease, stable #hx of lung CA s/p pneumonectomy, likely in remission per PCP #thrombocytopenia Diet Low fat, Low Sodium Activity Limited until seen by PCP Call your provider Fever or Chills, Shortness of breath, Bleeding, Chest pain, Vomitting, Excessive diarrhea, Weakness (unilateral) Patient Instructions you were hospitalized due to health care associated pneumonia and Influenza A infection. You were treated with Iv antibiotics and completed Tamiflu . Please continue Augmentin for 3 more days. Follow-up plan Please follow up with Dr Sue at [facility] and with PCP 1-2 weeks after discharge from [facility] . Follow-up Provider: Natacha Patel Follow-up with PCP in: 3 weeks Provider: Kathleen Sue MD Follow-up in: 1 week Dat Starks MD Sep 30, 2016 11:38
[2016-09-30] MEDS ORDERED: AMOX-363 PO (11:39)
--- NOTE | 2016-09-30 12:23 | NUR ---
Social Work- discharge: Data:EMR reviewed. PT is on day 5 of hospitalization for Pneumonia per H&P. Pt is medically stable for discharge today. PT continues to recommend SNF, ambulating CGA 35 ft.THEO confirmed with Myriam at [facility] that they are ready to accept pt today. Myriam states that the business office checked benefits and no authorization is needed. Myriam has arranged w/c van for 1400 with O2. THEO faxed orders and created packet. THEO updated daughter in law Dannielle Jones [phone] regarding discharge and facility,provided her with information. Dannielle will update son Jr and daughter Jamila. RN,ROBE,pt/family, and Aris all updated and agreeable to plan. Assessment:Pt who would benefit from SNF. Plan:Pt to discharge to [facility] today via cabulance at 1400. RN,UC,pt/family, and Aris all updated and agreeable to plan. FARHAD Matamoros
--- NOTE | 2016-09-30 13:02 | PCM.DC.MED ---
Discharge Summary Date of Service Sep 30, 2016 Dates of Hospitalization Date of Hospital Admission Sep 25, 2016 at 13:51 Date of Discharge: Sep 30, 2016 Providers: Admitting Physician: Kaycee Robison MD Primary Care Physician: Natacha Patel Attending Physician: Kaycee Robison MD Diagnosis at Time of Discharge Diagnosis at Time of Discharge #sepsis, due to Influenza A pneumonia PCR+, possible superimposed bacterial process, likely HCAP , # Rouleaux on peripheral smear -unclear etiology -calcium and serum protein normal,will not do SPEP -may consider workup outpatient if persists after treatment of infection #acute encephalopathy, POA, CTH neg, unlikely CVA, likely toxic metabolic due to sepsis, improving, chronic, stable #Parkinson Disease, stable #hx of lung CA s/p pneumonectomy, likely in remission per PCP #thrombocytopenia Consultations none Procedures XRay, CTs & MRIs CTH no acute findings PROCEDURE: X-RAY CHEST ONE VIEW, PORTABLE ([id number]) INDICATIONS: pneumonia TECHNIQUE: One view of the chest was acquired. COMPARISON: [facility], , CHEST 1 VIEW, 11/04/2014, 9:21. FINDINGS: Surgical changes and devices: Right hilar surgical clips redemonstrated. Lungs and pleura: Opacification of the right hemithorax related to prior pneumonectomy. Airspace opacity mildly medial left lung base otherwise left lung is clear. Mediastinum: Mediastinal contours appear normal. Heart size is normal. Bones and chest wall: No suspicious bony lesions. Overlying soft tissues appear unremarkable. IMPRESSION: Left basilar atelectasis versus aspiration or pneumonia. Correlate clinically. Dictated by: Dev Burk RRA Interpreted: Justo Thomas MD on 09/25/2016 at 14: 21 Transcribed by: JO ANN on 09/25/2016 at 14:22 Brief History as per HPI performed by Dr Robison on 09/25/16 Patient is not in condtion to give hx, hx obtained from charts, 81yoM with remote NSCLC s/p Rt pneumonectomy, [facility] [place] [facility], pt started to deteriorate since 09/23, confused last night, got worse this morning, it was reported that yesterday, pt was diagnosed with PNA, reported poor eating, patient complained of not feeling well, received one dose of Levaquin(which denied per ED note), noted v/s 176/97, 85, 86% on RA to 98% on 4liters at the facility. At baseline, pt is function, oriented. This morning pt was found to be combative, non-verbal, brought to ED. In ED VS BP stable 180/104-147/86, 83 to 99, tachypneic to 22, afebrile, 94% 4liter NC,labs showed wbc13, procalcitonin 0.47, lactate1.0, CXR showed complete rt lung opacification likely represent prior pneumonectomy(unchanged from prior), Lt basilar opacities suggestive of PNA. Hospital Course 81yoM with remote NSCLC s/p Rt pneumonectomy, [facility], decreased po, weakness, not feeling well. acute, active #sepsis, SIRS+ 3/4HR/RR/wbc, due to Influenza A pneumonia PCR+, possible superimposed bacterial process, likely HCAP given living [facility], -pt is clinically improving, white count is coming down, afebrile, HD stable, -Completed Tamiflu x5d -Treated with zosyn,azithro ,high risks of resistant strep, pseudmonas given structural lung dz, age, vancomycin stopped. Will discharge him on Augmentin for 2 more days -Infectious w/u MRSA swab, sterp Ag, legionella, BCX, sputum cx all negative -O2 supplement target>90% given one ventilating lung # Rouleaux on peripheral smear -unclear etiology -calcium and serum protein normal,will not do SPEP -may consider workup outpatient if persists after treatment of infection #acute encephalopathy, POA, resolved -CTH neg, unlikely CVA, likely toxic metabolic due to sepsis, improving, chronic, stable #Parkinson's disease, resumed home meds #hx of lung CA s/p pneumonectomy, likely in remission per PCP #thrombocytopenia, unclear onset, stable, Discharged to shelter facility Condition on discharge stable f/u with Dr Sue , called and signed out to her DNR/DNI Exam Vital Signs (Last) Date Time Temp Pulse Resp B/P Pulse Ox O2 Delivery O2 Flow Rate FiO2 09/30/16 09:05 76 20 99 Nasal Cannula 3.00 09/30/16 08:12 36.9 178/87 Exam achectic elderly, looked ill, tachypneic. using accessory muscle no JVD, MMM, no LAD regular tachy, nl s1, s2 no mrg coarse BS anteriorly on left S,ND,NT,normoactive BS+ warm, no edema, pulses 2/ Test 09/25/16 10:35 09/25/16 11:17 09/25/16 11:24 09/28/16 05:57 Lactic Acid Level 1.0mmol/L (0.4-2.0) Urine Legionella pneumophilia Ag Negative (Negative) Urine Color Straw (YELLOW) Urine Appearance Hazy (CLEAR,HAZY) Urine pH 5.5 (5.0-8.0) Urine Specific [place] 1.030 (1.003-1.035) Urine Protein 300mg/dL (NEG,TRACE) Urine Glucose (UA) Negativemg/dL (NEGATIVE) Urine Ketones 15mg/dL (NEGATIVE) Urine Occult Blood Moderate (NEGATIVE) Urine Nitrite Negative (NEGATIVE) Urine Bilirubin Negative (NEGATIVE) Urine Urobilinogen Normalmg/dL (NORMAL) Urine Leukocyte Esterase Negative (NEGATIVE) Urine RBC 0-2/hpf (0-2) Urine WBC 0-5/hpf (0-5) Urine Epithelial Cells Occasional/hpf (NONE-MOD) Urine Crystals Amorphous urates (NONE Urine Bacteria Moderate/hpf (NONE-FEW) Urine Hyaline Casts Occasional/lpf (NONE) Urine Granular Casts Occasional (NONE SEEN) Urine Waxy Casts None seen (NONE SEEN) Urine Red Blood Cell Casts None seen (NONE SEEN) Urine White Blood Cell Casts None seen (NONE SEEN) Urine Mucus None seen (None Seen) Urine Trichomonas None seen (NONE SEEN) Urine Yeast None (NONE SEEN) Urinalysis Comment None Urine Culture Reflexed Indicated Hematology Comments Rbc Procalcitonin 0.61ng/mL (0.00-0.08) Test 09/29/16 05:20 White Blood Count 8.9th/mm3 (3.8-10.1) Red Blood Count 3.25mil/mm3 (4.40-5.80) Hemoglobin 9.8g/dL (13.8-17.2) Hematocrit 31.5% (41.0-50.0) Mean Corpuscular Volume 96.9fL (81-100) Mean Corpuscular Hemoglobin 30.2pg (27.0-35.0) Mean Corpuscular Hemoglobin Concent 31.1% (32.0-37.0) Red Cell Distribution Width 13.9% (12.3-15.4) Platelet Count 130bil/L (150-400) Neutrophils (%) (Auto) 77% (40-74) Lymphocytes (%) (Auto) 9% (14-46) Monocytes (%) (Auto) 9% (4-12) Eosinophils (%) (Auto) 0% (0-5) Basophils (%) (Auto) 0% (0-3) Band Neutrophils % 2% (1-5) Metamyelocytes % 0% (0-0) Myelocytes % 3% (0-0) Sodium Level 141mEq/L (134-144) Potassium Level 3.3mEq/L (3.5-5.2) Chloride Level 101mEq/L (97-108) Carbon Dioxide Level 28mmol/L (18-29) Blood Urea Nitrogen 26mg/dL (8-27) Creatinine 0.93mg/dL (0.76-1.27) Estimat Glomerular Filtration Rate 82mL/min (>59) Glucose Level 89mg/dL (60-99) Calcium Level 8.4mg/dL (8.5-10.1) Phosphorus Level 2.5mg/dL (2.5-4.9) Magnesium Level 1.7mg/dL (1.6-2.6) Total Bilirubin 0.4mg/dL (0.0-1.2) Aspartate Amino Transf (AST/SGOT) 35U/L (0-50) Alanine Aminotransferase (ALT/SGPT) 21U/L (0-44) Alkaline Phosphatase 55U/L (25-160) Total Protein 5.3g/dL (6.4-8.4) Albumin 3.1g/dL (3.4-5.0) Discharge Medications Discharge Medications Albuterol/Ipratropium (Combivent Respimat Inhal [place]) 120 Spr/4 Gm Inhaler 1 PUFF IH QID (Reported) Amoxicillin/Clav K 500-125 mg (Augmentin 500-125 mg) 1 Each Tablet 1 TABLET PO BID Prescribed by: TED SHUKLA MD Carbidopa/Levodopa ER 50-200 mg (Carbidopa/Levodopa ER 50-200 mg) 1 Each Tablet 1 TABLET PO BID (Reported) Cholecalciferol (Vitamin D3) (Vitamin D3) 2,000 Unit Tablet 2,000 UNIT PO QAM ( Reported) Citalopram (Citalopram) 10 Mg Tablet 10 MG PO QAM (Reported) Fluticasone Propionate (Fluticasone Propionate Nasal) 16 Gm Wister.susp 1 SPRAY NS DAILY (Reported) Fluticasone/Salmeterol (Advair 100-50 Diskus) 60 Puffs/Inh Disk 1 PUFFS IH BID ( Reported) Lactobacillus Acidophilus (Florajen) 460 Mg Capsule 460 MG PO QPM (Reported) Levothyroxine (Levothyroxine) 25 Mcg Tablet 25 MCG PO QAM (Reported) Lisinopril (Lisinopril) 20 Mg Tablet 20 MG PO QAM (Reported) Memantine (Namenda) 10 Mg Tablet 10 MG PO BID (Reported) Sennosides (Senna) 8.6 Mg Tablet 8.6 MG PO MON,WED, FRI (Reported) Simvastatin (Simvastatin) 20 Mg Tablet 20 MG PO QPM (Reported) As needed Acetaminophen (Acetaminophen) 325 Mg Capsule 650 MG PO Q4H PRN PRN For Pain ( Reported) Docusate Sodium (Docusate Sodium) 250 Mg Capsule 250 MG PO DAILY PRN PRN For Constipation (Reported) Guaifenesin (Mucinex) 600 Mg Tablet.er 600 MG PO BID PRN PRN For Cough (Reported ) Mag Hydrox/Al Hydrox/Simeth (Antacid Suspension) 400 Mg-400 Mg-40 Mg/5 Ml Oral.susp 30 ML PO Q4H PRN PRN For Indigestion (Reported) Magnesium Hydroxide (Milk of Magnesia) 400 Mg/5 Ml Oral.susp 30 ML PO DAILY PRN PRN For Constipation (Reported) Followup Plan Disposition: custodial facility Follow-up plan Please follow up with Dr Sue at [facility] and with PCP 1-2 weeks after discharge from [facility] . Discharge Diet: Low fat, Low Sodium Discharge Activity: Limited until seen by PCP Patient Instructions you were hospitalized due to health care associated pneumonia and Influenza A infection. You were treated with Iv antibiotics and completed Tamiflu . Please continue Augmentin for 3 more days. Follow-up Provider: Natacha Patel Follow-up with PCP in: 3 weeks Provider: Kathleen Sue MD Follow-up in: 1 week Time spent 35 minutes coordinating discharge copies to: Natacha Patel; Kathleen Sue MD, Melaku MD Sep 30, 2016 13:02
[2016-09-30 13:20] VITALS: PULSE 77; RESP 18; O2SAT 90
--- NOTE | 2016-09-30 14:22 | NUR ---
DC Pt least via transport services to [facility]. Family are aware per SW. Pt packet in hand of transport drive. Pt transports via WC with 3L NC supplemental oxygen. IV removed. Pt very anxious and depressed regarding having to go to a facility rather than home. Report given to Sweetie at rehab facility. Care transferred to [facility].
== END 2016-09-30 14:14 | DRG 871 ==
LOC: SED 09:32 → EDUNIT# 09:32 → EDBD 09:32 → OSC 13:51
PROVIDERS: ADMIT Internal Medicine; ATTEND Internal Medicine
DX: A41.9 Sepsis, unspecified organism (principal); G92 Toxic encephalopathy; J10.08 Influenza due to other identified influenza virus with other specified pneumonia; J12.89 Other viral pneumonia; E03.9 Hypothyroidism, unspecified; E78.5 Hyperlipidemia, unspecified; J44.9 Chronic obstructive pulmonary disease, unspecified; G20 Parkinson's disease; F02.80 Dementia in other diseases classified elsewhere, unspecified severity, without behavioral disturbance, psychotic disturbance, mood disturbance, and anxiety; I12.9 Hypertensive chronic kidney disease with stage 1 through stage 4 chronic kidney disease, or unspecified chronic kidney disease; N18.9 Chronic kidney disease, unspecified; J45.909 Unspecified asthma, uncomplicated; Z85.118 Personal history of other malignant neoplasm of bronchus and lung; B97.89 Other viral agents as the cause of diseases classified elsewhere

== ENCOUNTER 2016-10-02 08:56 | Emergency (ER) | payer OTHER ==
[~2016-10-02] VITALS: Ht 170.2 cm; Wt 57.0 kg
[~2016-10-02 08:56] MED LIST: ACET325C PO; ADV100INH IH; AMOX-363 PO; CARB1TAB37 PO; CHOL200025 PO; CITA10TA9 PO; DOCU250C2 PO; FLUT16SP NS; GUAI600T2 PO; IPRA4AER IH; LACT460C PO; LEVO25TA5 PO; LISI-567 PO; MAG-95 PO; MAGN400O4 PO; NAM10 PO; SENN-133 PO; SIMV20TA4 PO
--- NOTE | 2016-10-02 09:03 | ED.REPORT ---
HPI-Dyspnea / Wheezing Date of Service Oct 02, 2016 ED Provider: Dr. Falk The patient is an 82 year old male with history of COPD, asthma, renal insufficiency, hypertension, hyperlipidemia, Parkinson's syndrome, large cell lung cancer s/p pneumonectomy, and chronic polyneuropathy, who was brought to the emergency department by EMS for low oxygen saturations. The patient was recently admitted for pneumonia and influenza. He was discharged 2.5 days ago to [facility] in [place]. When medics arrived today he was 91 % on 4 L. They administered a DuoNeb with some improvement. His oxygen saturations were 99 -100% on 4 L en route to the emergency department. The patient reports a recent cough, fever, and diarrhea. He denies abdominal pain, vomiting, chest pain or dyspnea. Spoke with a staff member form the long term. She reports that earlier this morning when she went in to check on the patient he was screaming "help me." He was diaphoretic, had a blood pressure of 213/111, heart rate of 104, and O2 sat on 75 % on 2.5 L. She increased his oxygen to 4L and his sats went up to about 85 %. She had also administered a DuoNeb about 1 hour prior to the ambulance getting there and it seemed like it was not helping his symptoms. Based on this she called Dr. Ayala who recommend transfer to the hospital. Nursing Notes Stated Complaint: RESPIRATORY DISTRESS Nursing Notes Reviewed: Yes Allergies: Coded Allergies: amantadine (Verified Allergy, Unknown, 09/25/16) cephalexin (Verified Allergy, Unknown, 09/25/16) codeine (Verified Allergy, Unknown, 09/25/16) guaifenesin (Verified Allergy, Unknown, 09/25/16) pneumococcal vaccine (Verified Allergy, Unknown, 09/25/16) pregabalin (Verified Allergy, Unknown, 09/25/16) Scheduled Albuterol/Ipratropium (Combivent Respimat Inhal [place]) 120 Spr/4 Gm Inhaler 1 PUFF IH QID Amoxicillin/Clav K 500-125 mg (Augmentin 500-125 mg) 1 Each Tablet 1 TABLET PO BID Carbidopa/Levodopa ER 50-200 mg (Carbidopa/Levodopa ER 50-200 mg) 1 Each Tablet 1 TABLET PO BID Cholecalciferol (Vitamin D3) (Vitamin D3) 2,000 Unit Tablet 2,000 UNIT PO QAM Citalopram (Citalopram) 10 Mg Tablet 10 MG PO QAM Fluticasone Propionate (Fluticasone Propionate Nasal) 16 Gm [place].susp 1 SPRAY NS DAILY Fluticasone/Salmeterol (Advair 100-50 Diskus) 60 Puffs/Inh Disk 1 PUFFS IH BID Lactobacillus Acidophilus (Florajen) 460 Mg Capsule 460 MG PO QPM Levothyroxine (Levothyroxine) 25 Mcg Tablet 25 MCG PO QAM Lisinopril (Lisinopril) 20 Mg Tablet 20 MG PO QAM Memantine (Namenda) 10 Mg Tablet 10 MG PO BID Sennosides (Senna) 8.6 Mg Tablet 8.6 MG PO MON,WED, FRI Simvastatin (Simvastatin) 20 Mg Tablet 20 MG PO QPM Scheduled PRN Acetaminophen (Acetaminophen) 325 Mg Capsule 650 MG PO Q4H PRN PRN For Pain Docusate Sodium (Docusate Sodium) 250 Mg Capsule 250 MG PO DAILY PRN PRN For Constipation Guaifenesin (Mucinex) 600 Mg Tablet.er 600 MG PO BID PRN PRN For Cough Mag Hydrox/Al Hydrox/Simeth (Antacid Suspension) 400 Mg-400 Mg-40 Mg/5 Ml Oral.susp 30 ML PO Q4H PRN PRN For Indigestion Magnesium Hydroxide (Milk of Magnesia) 400 Mg/5 Ml Oral.susp 30 ML PO DAILY PRN PRN For Constipation General Time Seen by MD: 09:03 Chief Complaint Shortness of breath Hx Obtained From: Patient, EMS Arrived By: Ambulance Sudden in Onset?: No Onset Occurred: 2 days ago Symptom Duration: Since onset Severity: Current: No pain currently Severity: Maximum: No pain Recent Healthcare: Recent doctor visit, Recent hospitalization Similar Sx Previous: Yes Past Medical History Past Medical History Notes: Code status: DNR Past Medical History COPD/asthma Hx of pneumonia Parkinson's syndrome Renal insufficiency with baseline creatinine 1.6 Hypertension Hyperlipidemia Essential tremor Spinal stenosis Depression with anxiety Chronic polyneuropathy Hypothyroidism Past Surgical History Right pneumonectomy in 1995 for large cell lung cancer which was lymph node negative Family History Noncontributory Smoking History Former Smoker (quit in 1974) Social History Currently living at [facility]. He was recently independent living at [facility]. Drug Use: Denies drug use Ambulatory Status Independent Review of Systems Review of Systems Note: +low O2 sats Constitutional: Reports: Fever Respiratory: Reports: Non-productive cough, Denies: Shortness of breath Cardiovascular: Denies: Chest pain Complete sys rev & neg: except as marked. GI: Reports: Diarrhea, Denies: Abdominal pain, Vomiting Physical Exam Initial Vital Signs Vital Signs (First) Date Time Temp Pulse Resp B/P Pulse Ox O2 Delivery O2 Flow Rate FiO2 10/02/16 09:10 36.2 79 22 178/72 96 Nasal Cannula 2 Initial VS: Reviewed Head / Eyes: Atraumatic, Normocephalic, PERRL Abdomen / GI: Soft, Non-tender, No guarding, No rebound, No distention Lymphatic: No lymphadenopathy Extremities: Vascular intact, Neuro intact, No swelling, No tenderness Skin: Warm, Dry, No cyanosis Psychiatric: Mood/affect normal, Behavior normal, Normal thought content General/Constitutional: Awake, Alert Alertness: Positive: Disoriented Appearance / Presentation: Positive: Cachectic Neck: Atraumatic, Full range of motion, No swelling, Non-tender, No midline vertebral tend Diminished Breath Sounds: Positive: Decreased R 98% on 2 L, 26 RR. Mildly tachypneic. Few fine rales at the base on the left. Rhonchorous cough but I don't hear it when he is just breathing. Cardiovascular: Heart rate NL, Regular rhythm, Heart sounds NL, No murmurs, No rubs Heart Rate / Rhythm: Negative: Tachycardia Heart Sounds / Murmur: Positive: Heart sounds diminished ENT: Airway patent, Mucous membranes moist On oropharyngeal exam everything is normal but he has a small laceration on the inside of his upper lip, not actively bleeding. Neurologic: Speech NL, No motor deficits, No sensory deficits Mental Status: Positive: Disoriented to time (He knows the year but not the month or day) Interpretation & Diagnostics Lab Results Interpretation Result Diagram: 10/02/1630 10/02/16 0930 Test 10/02/16 09:30 White Blood Count 13.0th/mm3 (3.8-10.1) Red Blood Count 3.70mil/mm3 (4.40-5.80) Hemoglobin 11.2g/dL (13.8-17.2) Hematocrit 35.3% (41.0-50.0) Mean Corpuscular Volume 95.4fL (81-100) Mean Corpuscular Hemoglobin 30.3pg (27.0-35.0) Mean Corpuscular Hemoglobin Concent 31.7% (32.0-37.0) Red Cell Distribution Width 13.9% (12.3-15.4) Platelet Count 177bil/L (150-400) Neutrophils (%) (Auto) 83.5% (40-74) Lymphocytes (%) (Auto) 8.4% (14-46) Monocytes (%) (Auto) 4.7% (4-12) Eosinophils (%) (Auto) 0.1% (0-5) Basophils (%) (Auto) 0.2% (0-3) Sodium Level 139mEq/L (134-144) Potassium Level 3.6mEq/L (3.5-5.2) Chloride Level 97mEq/L (97-108) Carbon Dioxide Level 28mmol/L (18-29) Blood Urea Nitrogen 23mg/dL (8-27) Creatinine 1.02mg/dL (0.76-1.27) Estimat Glomerular Filtration Rate 74mL/min (>59) Glucose Level 79mg/dL (60-99) Calcium Level 8.8mg/dL (8.5-10.1) Total Bilirubin 0.6mg/dL (0.0-1.2) Aspartate Amino Transf (AST/SGOT) 33U/L (0-50) Alanine Aminotransferase (ALT/SGPT) 10U/L (0-44) Alkaline Phosphatase 69U/L (25-160) Total Protein 6.3g/dL (6.4-8.4) Albumin 3.1g/dL (3.4-5.0) Hold Covarrubias Top Tube Received (Received) X-Ray Chest Interpretation Chest Xray Interpretation: IMPRESSION: Overall, grossly unchanged examination since 09/25/16 demonstrating near-complete opacification of the right lung, and retrocardiac left basilar consolidation. Dictated by: Cesar Mooney M.D. on 10/02/2016 at 10:12 Interpretation / Wet Read by: Interpret - Radiologist Re-Eval/Medical Decision Med Decision/Clinical Course On the of this month he was seen in clinic and was diagnosed with pneumonia. He was started on Levaquin with comment that he needs to be on continuous oxygen and close followup within 1-2 days. He was also diagnosed with acute and chronic respiratory failure, baseline respiratory status may be somewhat worse, exacerbated with acute infection. O2 sat in clinic were as low as 82 on room air and 96 on 2 L, at that point they decided to put him on continuous oxygen. He was admitted to this hospital from September 25- for pneumonia and sepsis. He was influenza positive for influenza AH3, 2 sets of blood cultures were negative after 5 days, urine culture negative, strep pneumonia antigen negative in urine. Source of Hx: Old records, EMS Re-Evaluation/Progress : Time of Eval: 11:43 Re-Evaluation/Progress Note: Rechecked the patient. Discussed plan for discharge. All questions were addressed. The patient has no symptoms at this time, vital signs of return to normal and oxygen saturation on 2 L of supplemental oxygen is in the high 90s. X-ray shows no new acute problem and laboratory data is relatively reassuring other than a mild leukocytosis. Consultation : Referral / Consult Name: Karrie Ayala PA-C Call Returned at: 11:42 [employer]: Agrees with eval, Agrees with plan Note: Spoke with the long term physician. She agrees with plan. Counseled Regarding: Diagnosis, Lab results, Need for follow-up, When/why to return to ED Discharge & Departure Impression: Primary Impression: Dyspnea Dyspnea type: unspecified Qualified Code: R06.00 - Dyspnea, unspecified Additional Impression: Hypertension Hypertension type: unspecified secondary hypertension Hypertension goal: unspecified goal Qualified Code: I15.9 - Secondary hypertension, unspecified Disposition: Home Discharge Condition All VS Reviewed: Yes Condition: Stable Additional Instructions: There is no evidence of any new unstable problems. Please continue previous therapies as prescribed. His vital signs are normal, oxygen saturation is in the mid 90s on 2 L. The patient is in no distress and has no complaints. Referrals: Karrie Ayala PA-C, Susan C ARNP Scribe Attestation Portions of this note were transcribed by Kelsi Veras. I, Dr. Falk personally performed the history, physical exam and medical decision-making; I reviewed and confirmed the accuracy of the information in the transcribed note. Signed by: Katie Sanchez, 10/02/2016 at 1210. copies to: Karrie Ayala PA-C; Natacha Patel Kirk H MD Oct 02, 2016 09:03 Kelsi Veras Oct 02, 2016 09:23
[2016-10-02 09:10] VITALS: BP 178/72; PULSE 79; RESP 22; O2SAT 96
[2016-10-02 09:51] LABS: BASOPHILS % (AUTO) 0.2 % (0-3); EOSINOPHILS % (AUTO) 0.1 % (0-5); MONOCYTES % (AUTO) 4.7 % (4-12); Mean Corpuscular Hemoglobin 30.3 pg (27.0-35.0); Mean Corpuscular Volume 95.4 fL (81-100); NEUTROPHILS % (AUTO) 83.5 % (40-74); Platelet Count 177 bil/L (150-400)
--- NOTE | 2016-10-02 10:15 | DRSVH ---
PROCEDURE: X-RAY CHEST ONE VIEW, PORTABLE ([id number]) INDICATIONS: hypoxia, recent flu TECHNIQUE: One view of the chest was acquired. COMPARISON: [facility], CR, XR CHEST 1VW (PORTABLE), 09/25/2016, 10:37. FINDINGS: Surgical changes and devices: Numerous surgical clips as before projecting over the right hemithorax Lungs and pleura: Near complete opacification of the right lung, with right-sided tracheal deviation, although the appearance is overall unchanged since 09/25/16. Retrocardiac left basilar opacities are also unchanged Mediastinum: Cardiac silhouette and mediastinal contours are stable. Bones and chest wall: No suspicious bony lesions. Overlying soft tissues appear unremarkable. IMPRESSION: Overall, grossly unchanged examination since 09/25/16 demonstrating near-complete opacification of the right lung, and retrocardiac left basilar consolidation. Dictated by: Cesar Mooney M.D. on 10/02/2016 at 10:12 Approved by: Cesar Mooney M.D. on 10/02/2016 at 10:14
[2016-10-02 11:12] VITALS: BP 122/78; PULSE 78; RESP 22; O2SAT 96
== END 2016-10-02 12:18 | disposition home or self-care (01) ==
LOC: EDBD 08:56 → EDUNIT# 08:56 → SED 08:56
DX: R06.00 Dyspnea, unspecified (principal); G20 Parkinson's disease; I15.9 Secondary hypertension, unspecified; J44.1 Chronic obstructive pulmonary disease with (acute) exacerbation; J45.909 Unspecified asthma, uncomplicated; E78.5 Hyperlipidemia, unspecified; E03.9 Hypothyroidism, unspecified; Z87.891 Personal history of nicotine dependence; Z88.8 Allergy status to other drugs, medicaments and biological substances; Z88.5 Allergy status to narcotic agent; Z87.01 Personal history of pneumonia (recurrent)